=== PATIENT | female | born 2000 | race Caucasian/White ===

== ENCOUNTER 2023-10-03 18:10 | Emergency (ER) | payer OTHER, SELFPAY ==
[2023-10-03 18:12] VITALS: BP 123/71; PULSE 103; RESP 18; TEMP 36.3; O2SAT 100
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
[2023-10-03] MEDS: HYDROcodone/acetaminophen (*CRX) 5-325 MG TABLET 1 TAB PO (19:37)
[2023-10-03] MEDS: ACETAMINOPHEN 325 MG TABLET 650 MG PO (19:38)
[2023-10-03 21:27] VITALS: BP 128/80; PULSE 88; RESP 16; TEMP 36.6; O2SAT 99
== END 2023-10-03 21:28 | disposition home or self-care (01) ==
PROVIDERS: Emergency Provider Student in an Organized Health Care Education/Training Program
DX: S39.012A Strain of muscle, fascia and tendon of lower back, initial encounter (principal); H53.8 Other visual disturbances; V89.2XXA Person injured in unspecified motor-vehicle accident, traffic, initial encounter
CPT/HCPCS: 99283; A9270